=== PATIENT | female | born 1930 | race Caucasian/White ===

== ENCOUNTER 2017-09-30 10:45 | Inpatient (IN) | payer OTHER ==
[2017-09-30] MEDS: SOD CHLORIDE 0.9% 1,000 ML IV (11:41)
[2017-09-30] MEDS: morphine 4 MG/ML VIAL IV (11:42)
[2017-09-30] MEDS: ONDANSETRON 4 MG INJ IV (11:42)
[2017-09-30 12:03] LABS: ADD MAN DIFF? NO
[2017-09-30 12:07] LABS: WHITE BLOOD COUNT 6.3 10^3/ul (4.8-10.8)
[2017-09-30 12:07] LABS: BASOPHIL # 0.1 10^3/ul (0.0-0.1); BASOPHILS % 0.8 % (0.0-2.0); EOSINOPHILS # 0.1 10^3/ul (0.0-0.5); EOSINOPHILS % 1.1 % (0.0-7.0); HEMATOCRIT 42.1 % (37.0-47.0); LYMPHOCYTES % 31.3 % (15.0-51.0); MEAN CORPUSCULAR HGB CONC 33.3 g/dl (32.0-37.0); MEAN CORPUSCULAR VOLUME 96.3 fl (82.0-101.0); MEAN PLATELET VOLUME 9.3 fl (7.4-10.4); MONOCYTE # 0.5 10^3/ul (0.3-0.9); MONOCYTES % 7.4 % (0.0-11.0); NEUTROPHIL # 3.7 10^3/ul (1.6-7.5); NEUTROPHILS % 59.1 % (39.0-77.0); PLATELET COUNT 240 10^3/UL (140-415); RED BLOOD COUNT 4.37 10^6/ul (4.20-5.40); RED CELL DISTRIBUTION WIDTH 12.5 % (11.5-14.5)
[2017-09-30 12:27] LABS: ALANINE AMINOTRANSFERASE 26 IU/L (13-69); ALBUMIN/GLOBULIN RATIO 1.29; ALKALINE PHOSPHATASE 73 IU/L (42-121); ANION GAP 11 (8-16); ASPARTATE AMINO TRANSFERASE 35 IU/L (15-46); BILIRUBIN,INDIRECT 0.8 mg/dl (0-1.1); BILIRUBIN,TOTAL 0.8 mg/dl (0.2-1.3); BLOOD UREA NITROGEN 21 mg/dl (7-20); CALCIUM 10.1 mg/dl (8.4-10.2); CARBON DIOXIDE 36 mmol/L (21-31); CHLORIDE 100 mmol/L (97-110); CREATININE 0.71 mg/dl (0.44-1.00); GLUCOSE 96 mg/dl (70-220); LIPASE 116 U/L (23-300); POTASSIUM 4.7 mmol/L (3.5-5.1); SODIUM 142 mmol/L (135-144); TOTAL PROTEIN 7.1 g/dl (6.1-8.1)
[2017-09-30] MEDS ORDERED: ONDANSETRON 4 MG INJ IV (12:30)
[2017-09-30] MEDS ORDERED: NACL 0.9% 3 ML SYG IV (12:30)
[2017-09-30 12:32] LABS: INR 0.96; PROTIME 12.9 Sec (11.9-14.9)
[2017-09-30 12:33] LABS: PARTIAL THROMBOPLASTIN TIME 34.5 Sec (25.0-35.0)
[2017-09-30 12:41] LABS: TROPONIN-I < 0.012 ng/ml (0.000-0.120)
[2017-09-30 13:27] LABS: ADD UMIC YES; UR ASCORBIC ACID NEGATIVE (NEGATIVE); UR BILIRUBIN (Dip) NEGATIVE (NEGATIVE); UR BLOOD (Dip) NEGATIVE (NEGATIVE); UR CLARITY CLEAR (CLEAR); UR COLOR STRAW (YELLOW); UR GLUCOSE (Dip) NEGATIVE (NEGATIVE); UR KETONES (Dip) NEGATIVE (NEGATIVE); UR LEUKOCYTE ESTERASE (Dip) 1+ Leu/ul (NEGATIVE); UR NITRITE (Dip) NEGATIVE (NEGATIVE); UR RBC 5 /HPF (0-5); UR SPECIFIC GRAVITY (Dip) 1.008 (1.003-1.030); UR TOTAL PROTEIN (Dip) NEGATIVE (NEGATIVE); UR UROBILINOGEN (Dip) NEGATIVE (NEGATIVE); UR WBC 1 /HPF (0-5)
[2017-09-30] MEDS: morphine 2 MG INJ IV (14:18)
[2017-09-30] MEDS: DEXTROSE 5%-0.45% NACL 1,000 ML IV (15:41)
[2017-09-30] MEDS: morphine LIQ (10 MG/5 ML) CUP PO (18:54)
[2017-09-30] MEDS: ATORVASTATIN 10 MG TAB PO (20:57)
[2017-09-30] MEDS: HEPARIN 5,000 UNIT/0.5 ML VIAL SC (22:13)
[2017-09-30] MEDS: traZODone 50 MG TAB PO (23:30)
[2017-10-01] MEDS: morphine LIQ (10 MG/5 ML) CUP PO ×3 (00:27→20:30)
[2017-10-01] MEDS: DEXTROSE 5%-0.45% NACL 1,000 ML IV (03:57)
[2017-10-01 05:15] LABS: ADD MAN DIFF? NO
[2017-10-01 05:16] LABS: BASOPHILS % 0.4 % (0.0-2.0); EOSINOPHILS % 0.3 % (0.0-7.0); HEMATOCRIT 33.8 % (37.0-47.0); HEMOGLOBIN 11.1 g/dl (12.0-16.0); LYMPHOCYTES # 1.5 10^3/ul (0.8-2.9); LYMPHOCYTES % 19.5 % (15.0-51.0); MEAN CORPUSCULAR HEMOGLOBIN 31.8 pg (29.0-33.0); MEAN CORPUSCULAR HGB CONC 32.8 g/dl (32.0-37.0); MEAN CORPUSCULAR VOLUME 96.8 fl (82.0-101.0); MEAN PLATELET VOLUME 9.6 fl (7.4-10.4); MONOCYTE # 0.8 10^3/ul (0.3-0.9); MONOCYTES % 10.7 % (0.0-11.0); NEUTROPHIL # 5.2 10^3/ul (1.6-7.5); PLATELET COUNT 187 10^3/UL (140-415); RED BLOOD COUNT 3.49 10^6/ul (4.20-5.40); RED CELL DISTRIBUTION WIDTH 12.8 % (11.5-14.5)
[2017-10-01 05:16] LABS: WHITE BLOOD COUNT 7.6 10^3/ul (4.8-10.8)
[2017-10-01 05:55] LABS: ANION GAP 8 (8-16); BLOOD UREA NITROGEN 17 mg/dl (7-20); CALCIUM 8.5 mg/dl (8.4-10.2); CARBON DIOXIDE 33 mmol/L (21-31); CHLORIDE 103 mmol/L (97-110); CREATININE 0.72 mg/dl (0.44-1.00); GLUCOSE 129 mg/dl (70-220); MAGNESIUM 2.1 mg/dl (1.7-2.5); PHOSPHORUS 3.3 mg/dl (2.5-4.9); POTASSIUM 4.2 mmol/L (3.5-5.1); SODIUM 140 mmol/L (135-144)
[2017-10-01] MEDS: ACETAMINOPHEN 325 MG TAB PO ×2 (06:27→17:43)
[2017-10-01] MEDS: PANTOPRAZOLE (EC) 40 MG TAB PO (06:27)
[2017-10-01] MEDS: HEPARIN 5,000 UNIT/0.5 ML VIAL SC (06:29)
[2017-10-01] MEDS: HYDROCODONE/APAP (5/325) TAB PO (10:16)
[2017-10-01] MEDS: ATORVASTATIN 10 MG TAB PO (21:00)
[2017-10-01] MEDS: traZODone 50 MG TAB PO (21:00)
[2017-10-01] MEDS ORDERED: traZODone 50 MG TAB PO (21:00)
[2017-10-02] MEDS: morphine LIQ (10 MG/5 ML) CUP PO (00:36)
[2017-10-02] MEDS: D5W-0.45 NACL + KCL 20 MEQ 1,000 ML IV ×4 (00:40→13:41)
[2017-10-02 05:27] LABS: ADD MAN DIFF? NO
[2017-10-02] MEDS: PANTOPRAZOLE (EC) 40 MG TAB PO (05:28)
[2017-10-02 05:31] LABS: BASOPHILS % 0.4 % (0.0-2.0); EOSINOPHILS % 0.4 % (0.0-7.0); HEMATOCRIT 31.7 % (37.0-47.0); HEMOGLOBIN 10.4 g/dl (12.0-16.0); LYMPHOCYTES # 1.5 10^3/ul (0.8-2.9); LYMPHOCYTES % 20.1 % (15.0-51.0); MEAN CORPUSCULAR HEMOGLOBIN 31.9 pg (29.0-33.0); MEAN CORPUSCULAR HGB CONC 32.8 g/dl (32.0-37.0); MEAN CORPUSCULAR VOLUME 97.2 fl (82.0-101.0); MEAN PLATELET VOLUME 10.1 fl (7.4-10.4); MONOCYTE # 0.8 10^3/ul (0.3-0.9); MONOCYTES % 11.3 % (0.0-11.0); NEUTROPHIL # 4.9 10^3/ul (1.6-7.5); NEUTROPHILS % 67.7 % (39.0-77.0); PLATELET COUNT 179 10^3/UL (140-415); RED BLOOD COUNT 3.26 10^6/ul (4.20-5.40); RED CELL DISTRIBUTION WIDTH 12.8 % (11.5-14.5)
[2017-10-02 05:31] LABS: WHITE BLOOD COUNT 7.2 10^3/ul (4.8-10.8)
[2017-10-02 07:20] LABS: ANION GAP 8 (8-16); BLOOD UREA NITROGEN 14 mg/dl (7-20); CALCIUM 8.6 mg/dl (8.4-10.2); CARBON DIOXIDE 32 mmol/L (21-31); CHLORIDE 106 mmol/L (97-110); GLUCOSE 117 mg/dl (70-220); MAGNESIUM 2.1 mg/dl (1.7-2.5); PHOSPHORUS 2.7 mg/dl (2.5-4.9); SODIUM 142 mmol/L (135-144)
[2017-10-02] MEDS ORDERED: CEFAZOLIN 2 GM/50 ML (PMX) 50 ML IVPB (07:29)
[2017-10-02] MEDS ORDERED: DIPHENHYDRAMINE 50 MG INJ IV (07:30)
[2017-10-02] MEDS ORDERED: MEPERIDINE 25 MG INJ IV (07:30)
[2017-10-02] MEDS ORDERED: OXYCODONE/ACETAMINOPHEN (5/325) TAB PO (07:30)
[2017-10-02] MEDS ORDERED: hydrALAzine 20 MG INJ IV (07:30)
[2017-10-02] MEDS ORDERED: LABETALOL HCL 20MG INJ IV (07:30)
[2017-10-02] MEDS ORDERED: ONDANSETRON 4 MG INJ IV (07:30)
[2017-10-02] MEDS ORDERED: HYDROmorphONE (0.2 MG/ML) 10ML SYG IV ×3 (07:30)
[2017-10-02] MEDS ORDERED: METOCLOPRAMIDE 10 MG INJ IV (07:30)
[2017-10-02] MEDS ORDERED: FENTAnyl 50 MCG/ML VIAL IV ×3 (07:30)
[2017-10-02] MEDS ORDERED: EPHEDrine SULFATE 50 MG/5 ML SYG IV (07:30)
[2017-10-02] MEDS ORDERED: PROPOFOL 20 ML (07:36)
[2017-10-02] MEDS ORDERED: BUPIVACAINE 0.75%/DEXT (SPINAL) 2 ML INJ (07:37)
[2017-10-02] MEDS ORDERED: FENTAnyl 50 MCG/ML VIAL (07:37)
[2017-10-02] MEDS ORDERED: morphine SULFATE/PF (10 MG/10 ML) INJ (08:03)
[2017-10-02] MEDS ORDERED: PHENYLephrine (100 MCG/ML) 5ML SYG ×4 (08:23→09:37)
[2017-10-02] MEDS ORDERED: ONDANSETRON 4 MG INJ (09:21)
[2017-10-02] MEDS ORDERED: METOCLOPRAMIDE 10 MG INJ (09:21)
[2017-10-02] MEDS ORDERED: ACETAMINOPHEN 1000MG/100ML IV 100 ML (09:21)
[2017-10-02] MEDS ORDERED: DEXAMETHASONE 4 MG/ML 1 ML INJ (09:21)
[2017-10-02] MEDS ORDERED: NACL 0.9% 3 ML SYG IV (09:30)
[2017-10-02] MEDS ORDERED: ALBUMIN HUMAN 5% 250 ML (09:36)
[2017-10-02] MEDS ORDERED: HETASTARCH 6% NACL 500 ML (09:36)
[2017-10-02] MEDS ORDERED: EPHEDrine SULFATE 50 MG/5 ML SYG (09:37)
[2017-10-02] MEDS ORDERED: NALOXONE (0.4 MG/ML) INJ IV (11:30)
[2017-10-02] MEDS: TIMOLOL 0.5% 5 ML OPH BOTH EYES ×2 (13:41→21:21)
[2017-10-02] MEDS: CEFAZOLIN 1 GM/50 ML (PMX) 50 ML IVPB ×2 (13:41→21:22)
[2017-10-02] MEDS: traZODone 50 MG TAB PO (21:00)
[2017-10-02] MEDS: ASPIRIN (EC) 325 MG TAB PO ×2 (21:00→22:08)
[2017-10-02] MEDS: LATANOPROST 0.005% 2.5 ML OPH BOTH EYES (21:21)
[2017-10-02] MEDS: ATORVASTATIN 10 MG TAB PO (21:22)
[2017-10-03] MEDS: DOCUSATE SODIUM 100 MG CAP PO ×2 (02:36→21:08)
[2017-10-03] MEDS: ACETAMINOPHEN 325 MG TAB PO ×3 (02:36→21:07)
[2017-10-03] MEDS: D5W-0.45 NACL + KCL 20 MEQ 1,000 ML IV ×2 (02:52→14:46)
[2017-10-03 05:23] LABS: ADD MAN DIFF? NO
[2017-10-03 05:27] LABS: WHITE BLOOD COUNT 9.9 10^3/ul (4.8-10.8)
[2017-10-03 05:27] LABS: BASOPHILS % 0.2 % (0.0-2.0); HEMATOCRIT 27.2 % (37.0-47.0); HEMOGLOBIN 8.9 g/dl (12.0-16.0); LYMPHOCYTES # 0.9 10^3/ul (0.8-2.9); LYMPHOCYTES % 8.8 % (15.0-51.0); MEAN CORPUSCULAR HEMOGLOBIN 32.1 pg (29.0-33.0); MEAN CORPUSCULAR HGB CONC 32.7 g/dl (32.0-37.0); MEAN CORPUSCULAR VOLUME 98.2 fl (82.0-101.0); MEAN PLATELET VOLUME 10.1 fl (7.4-10.4); MONOCYTES % 10.3 % (0.0-11.0); NEUTROPHIL # 7.9 10^3/ul (1.6-7.5); NEUTROPHILS % 80.4 % (39.0-77.0); PLATELET COUNT 167 10^3/UL (140-415); RED BLOOD COUNT 2.77 10^6/ul (4.20-5.40); RED CELL DISTRIBUTION WIDTH 12.6 % (11.5-14.5)
[2017-10-03] MEDS: PANTOPRAZOLE (EC) 40 MG TAB PO (05:34)
[2017-10-03 05:53] LABS: ALBUMIN 2.7 g/dl (3.3-4.9); ANION GAP 10 (8-16); BLOOD UREA NITROGEN 14 mg/dl (7-20); CALCIUM 8.6 mg/dl (8.4-10.2); CARBON DIOXIDE 29 mmol/L (21-31); CHLORIDE 107 mmol/L (97-110); CREATININE 0.61 mg/dl (0.44-1.00); GLUCOSE 134 mg/dl (70-220); MAGNESIUM 1.9 mg/dl (1.7-2.5); PHOSPHORUS 2.7 mg/dl (2.5-4.9); POTASSIUM 4.7 mmol/L (3.5-5.1); SODIUM 141 mmol/L (135-144)
[2017-10-03] MEDS ORDERED: PANTOPRAZOLE (EC) 40 MG TAB PO (06:00)
[2017-10-03] MEDS: ASPIRIN (EC) 325 MG TAB PO ×2 (08:21→21:08)
[2017-10-03] MEDS: TIMOLOL 0.5% 5 ML OPH BOTH EYES ×2 (08:22→21:04)
[2017-10-03] MEDS: traZODone 50 MG TAB PO (21:03)
[2017-10-03] MEDS: ATORVASTATIN 10 MG TAB PO (21:03)
[2017-10-03] MEDS: LATANOPROST 0.005% 2.5 ML OPH BOTH EYES (21:04)
[2017-10-03] MEDS: MAGNESIUM HYDROXIDE 30ML CUP PO (21:04)
[2017-10-04] MEDS: D5W-0.45 NACL + KCL 20 MEQ 1,000 ML IV ×3 (00:56→12:54)
[2017-10-04] MEDS: oxyCODONE 5 MG TAB PO ×3 (01:00→12:54)
[2017-10-04] MEDS: PANTOPRAZOLE (EC) 40 MG TAB PO (05:46)
[2017-10-04 05:48] LABS: ADD MAN DIFF? NO
[2017-10-04 06:03] LABS: BASOPHIL # 0.1 10^3/ul (0.0-0.1); BASOPHILS % 0.6 % (0.0-2.0); EOSINOPHILS # 0.1 10^3/ul (0.0-0.5); EOSINOPHILS % 1.2 % (0.0-7.0); HEMATOCRIT 27.4 % (37.0-47.0); HEMOGLOBIN 8.9 g/dl (12.0-16.0); LYMPHOCYTES # 1.5 10^3/ul (0.8-2.9); LYMPHOCYTES % 18.3 % (15.0-51.0); MEAN CORPUSCULAR HGB CONC 32.5 g/dl (32.0-37.0); MEAN CORPUSCULAR VOLUME 98.6 fl (82.0-101.0); MEAN PLATELET VOLUME 10.1 fl (7.4-10.4); MONOCYTE # 0.9 10^3/ul (0.3-0.9); MONOCYTES % 10.5 % (0.0-11.0); NEUTROPHIL # 5.8 10^3/ul (1.6-7.5); NEUTROPHILS % 69.2 % (39.0-77.0); PLATELET COUNT 212 10^3/UL (140-415); RED BLOOD COUNT 2.78 10^6/ul (4.20-5.40); RED CELL DISTRIBUTION WIDTH 13.1 % (11.5-14.5)
[2017-10-04 06:03] LABS: WHITE BLOOD COUNT 8.4 10^3/ul (4.8-10.8)
[2017-10-04 06:24] LABS: ALBUMIN 2.6 g/dl (3.3-4.9); ANION GAP 9 (8-16); BLOOD UREA NITROGEN 14 mg/dl (7-20); CALCIUM 8.1 mg/dl (8.4-10.2); CARBON DIOXIDE 33 mmol/L (21-31); CHLORIDE 107 mmol/L (97-110); CREATININE 0.68 mg/dl (0.44-1.00); GLUCOSE 114 mg/dl (70-220); MAGNESIUM 2.1 mg/dl (1.7-2.5); PHOSPHORUS 2.4 mg/dl (2.5-4.9); POTASSIUM 4.1 mmol/L (3.5-5.1); SODIUM 145 mmol/L (135-144)
[2017-10-04] MEDS: TIMOLOL 0.5% 5 ML OPH BOTH EYES ×2 (08:17→20:08)
[2017-10-04] MEDS: DOCUSATE SODIUM 100 MG CAP PO (08:17)
[2017-10-04] MEDS: ASPIRIN (EC) 325 MG TAB PO ×2 (08:17→20:09)
[2017-10-04] MEDS: POLYETHYLENE GLYCOL 17 GM PACKET PO (18:17)
[2017-10-04] MEDS: SENNA TAB PO (20:09)
[2017-10-04] MEDS: ATORVASTATIN 10 MG TAB PO (20:09)
[2017-10-04] MEDS: LATANOPROST 0.005% 2.5 ML OPH BOTH EYES (20:09)
[2017-10-04] MEDS: traZODone 50 MG TAB PO (20:10)
[2017-10-04] MEDS ORDERED: SENNA TAB PO (21:00)
[2017-10-04] MEDS: ACETAMINOPHEN 325 MG TAB PO (21:31)
[2017-10-04] MEDS: MAGNESIUM HYDROXIDE 30ML CUP PO (21:31)
[2017-10-05] MEDS: DOCUSATE SODIUM 100 MG CAP PO ×2 (00:30→06:01)
[2017-10-05] MEDS: D5W-0.45 NACL + KCL 20 MEQ 1,000 ML IV (04:48)
[2017-10-05 05:13] LABS: ADD MAN DIFF? NO
[2017-10-05 05:16] LABS: BASOPHILS % 0.3 % (0.0-2.0); EOSINOPHILS # 0.1 10^3/ul (0.0-0.5); EOSINOPHILS % 1.4 % (0.0-7.0); HEMATOCRIT 26.5 % (37.0-47.0); HEMOGLOBIN 8.8 g/dl (12.0-16.0); LYMPHOCYTES # 1.6 10^3/ul (0.8-2.9); MEAN CORPUSCULAR HEMOGLOBIN 32.1 pg (29.0-33.0); MEAN CORPUSCULAR HGB CONC 33.2 g/dl (32.0-37.0); MEAN CORPUSCULAR VOLUME 96.7 fl (82.0-101.0); MEAN PLATELET VOLUME 9.8 fl (7.4-10.4); MONOCYTE # 0.9 10^3/ul (0.3-0.9); MONOCYTES % 9.4 % (0.0-11.0); NEUTROPHIL # 6.8 10^3/ul (1.6-7.5); NEUTROPHILS % 71.5 % (39.0-77.0); PLATELET COUNT 234 10^3/UL (140-415); RED BLOOD COUNT 2.74 10^6/ul (4.20-5.40); RED CELL DISTRIBUTION WIDTH 13.3 % (11.5-14.5)
[2017-10-05 05:16] LABS: WHITE BLOOD COUNT 9.5 10^3/ul (4.8-10.8)
[2017-10-05 05:37] LABS: ANION GAP 8 (8-16); BLOOD UREA NITROGEN 15 mg/dl (7-20); CALCIUM 8.5 mg/dl (8.4-10.2); CARBON DIOXIDE 33 mmol/L (21-31); CHLORIDE 105 mmol/L (97-110); CREATININE 0.65 mg/dl (0.44-1.00); GLUCOSE 111 mg/dl (70-220); MAGNESIUM 2.3 mg/dl (1.7-2.5); PHOSPHORUS 3.7 mg/dl (2.5-4.9); POTASSIUM 4.6 mmol/L (3.5-5.1); SODIUM 141 mmol/L (135-144)
[2017-10-05] MEDS: PANTOPRAZOLE (EC) 40 MG TAB PO (06:01)
[2017-10-05] MEDS: SENNA TAB PO (09:19)
[2017-10-05] MEDS: POLYETHYLENE GLYCOL 17 GM PACKET PO (09:19)
[2017-10-05] MEDS: ASPIRIN (EC) 325 MG TAB PO (09:20)
[2017-10-05] MEDS: TIMOLOL 0.5% 5 ML OPH BOTH EYES (09:22)
== END 2017-10-05 16:40 | DRG 481 ==
LOC: E/R 10:45 → MS1 12:12
PROC: 0QH636Z Insertion of Intramedullary Internal Fixation Device into Right Upper Femur, Percutaneous Approach (ICD-10-PCS; principal; 2017-10-02 07:30)
DX: S72.141A Displaced intertrochanteric fracture of right femur, initial encounter for closed fracture (principal); M80.051A Age-related osteoporosis with current pathological fracture, right femur, initial encounter for fracture; S22.31XA Fracture of one rib, right side, initial encounter for closed fracture; W18.30XA Fall on same level, unspecified, initial encounter; Y93.41 Activity, dancing; E78.5 Hyperlipidemia, unspecified; K59.00 Constipation, unspecified
CPT/HCPCS: 36415; 71045; 72170; 73510; 73530; 73562; 80048; 80053; 80069; 81001; 83690; 83735; 84100; 84484; 85025; 85610; 85730; 93005; 96374; 96375; 97110; 97116; 97163; 97165; 97530; 99285-25